=== PATIENT | female | born 1980 | race Caucasian/White ===

== ENCOUNTER → 2017-12-22 | Outpatient (CLI) | payer OTHER ==
[~2017-12-22] MED LIST: DCS100C PO; IBP800T PO; OXYC1TAB12 PO; PNV1TABL81 PO
--- NOTE | 2017-12-22 14:12 | Diagnostic Imaging Report ---
INDICATION: Routine screening. COMPARISON: No prior mammograms are available for comparison. This is a baseline study. TECHNIQUE: 2D and 3D bilateral screening mammography was performed with CAD. FINDINGS: Both breasts are heterogeneously dense, limiting the sensitivity of mammography. No mass or malignant appearing microcalcifications are seen. There are benign calcifications in the retroareolar right breast. The axillae are unremarkable. IMPRESSION: No mammographic features suspicious for malignancy are identified. ACR BI-RADS Category 2: Benign findings. Result letter will be mailed to the patient. Note: At least 10% of breast cancer is not imaged by mammography. Dictated by: Dictated on workstation # [id number]
== END ==
LOC: RAD 10:25
PROVIDERS: ATTEND Obstetrics & Gynecology
DX: Z12.31 Encounter for screening mammogram for malignant neoplasm of breast (principal)
CPT/HCPCS: 77067

== ENCOUNTER 2018-12-30 06:52 | Inpatient (IN) | payer OTHER ==
[~2018-12-30] VITALS: Ht 172.7 cm; Wt 74.1 kg
[2018-12-30] VITALS (9 sets, daily range): BP systolic 106–174; BP diastolic 56–80
--- NOTE | 2018-12-30 06:46 | NUR ---
BONY BECKHAM presented to unit via AMBULATORY from HOME, accompanied by S/O, with c/o POSS MEMBRANE RUPTURE. BONY BECKHAM weighed, gowned, voided, and to bed. EFHM and TOCO applied, VS taken. BONY BECKHAM oriented to bed controls, call light, TV, heat, and A/C controls.
--- NOTE | 2018-12-30 07:01 | NUR ---
dr king notified of patient situation, history, assessment. new orders received to admit patient.
[2018-12-30] MEDS ORDERED: D5 LR IV SOLUTION 1,000 ML IV SCH ×2 (07:32→08:13)
[2018-12-30 07:48] LABS: BASOPHILS % (AUTO) 0 % (0-10); EOSINOPHILS # (AUTO) 0.1 10^3/uL (0.0-0.3); EOSINOPHILS % (AUTO) 1 % (0-10); HEMATOCRIT 37 % (35-52); HEMOGLOBIN 12.9 G/DL (11.5-16.0); LYMPHOCYTES # (AUTO) 1.8 X 10^3 (1.0-4.0); LYMPHOCYTES % (AUTO) 26 % (12-44); MEAN CORPUSCULAR HEMOGLOBIN 33 PG (25-34); MEAN CORPUSCULAR HGB CONC 35 G/DL (32-36); MEAN CORPUSCULAR VOLUME 95 FL (80-99); MEAN PLATELET VOLUME 10.8 FL (7.4-10.4); MONOCYTES # (AUTO) 0.4 X 10^3 (0.0-1.0); MONOCYTES % (AUTO) 6 % (0-12); NEUTROPHILS # (AUTO) 4.6 X 10^3 (1.8-7.8); NEUTROPHILS % (AUTO) 67 % (42-75); PLATELET COUNT 203 10^3/uL (130-400); RED CELL DISTRIBUTION WIDTH 12.1 % (10.0-14.5); WHITE BLOOD COUNT 6.9 10^3/uL (4.3-11.0)
[2018-12-30] MEDS ORDERED: OXYTOCIN/NORMAL SALINE 500 ML IV SCH ×2 (08:13→12:24)
--- NOTE | 2018-12-30 11:40 | NUR ---
DR TANNER NOTIFIED OF PATIENT MOST RECENT CERVICAL EXAM .NO NEW ORDERS. CONTINUING TO OBSERVE EXPECTANTLY.
[2018-12-30] MEDS ORDERED: KETOROLAC 30 MG/ML VIAL ONE (12:28)
[2018-12-30] MEDS ORDERED: KETOROLAC 30 MG/ML VIAL IVP PRN (12:30)
[2018-12-30] MEDS ORDERED: oxyCODONE/APAP 5/325MG (PERCOCET 5) TABLET PO PRN (12:30)
[2018-12-30] MEDS ORDERED: BENZOCAINE/MENTHOL (DERMOPLAST) 56 ML CAN TP PRN (12:30)
[2018-12-30] MEDS ORDERED: ONDANSETRON 4 MG/2 ML (SDV) Z0FRAN IVP PRN (12:30)
[2018-12-30] MEDS ORDERED: MEASLES,MUMPS,RUBELLA 1 EA INJ SC ONE (12:30)
[2018-12-30] MEDS ORDERED: TETANUS,DIPTH,PERTUSS P/F (BOOSTRIX) 0.5 ML VIAL IM ONE (12:30)
--- NOTE | 2018-12-30 13:10 | NUR ---
ASSISTED UP TO BATHROOM. SPONTANEOUS VOID. PERICARE PERFORMED BY PATIENT DEMONSTRATED PROPER UNDERSTANDING . NEW PAD AND UNDERWEAR ON. FAMILY REMAINS AT BEDSIDE.
--- NOTE | 2018-12-30 13:17 | NUR ---
TRANSFERRED TO ROOM 311 VIA AMBULATION WITH FAMILY AT BEDSIDE. DENIES DIZZINESS OR LIGHTHEADEDNESS. STEADY GAIT, SMILING AND TALKING WITH FAMILY AND STAFF. REVIEWED TEMP CONTROL, CALL LIGHT, DIET ORDER, AND INFO PACKET REVIEWED. DENIES FURTHER NEED. WILL CONTINUE TO MONITOR.
[2018-12-30] MEDS: DOCUSATE SODIUM 100 MG (COLACE) CAP PO SCH (20:20)
--- NOTE | 2018-12-30 20:46 | OPERATIVE REPORT ---
DATE OF SERVICE: 12/30/2018 DELIVERY NOTE The patient delivered by term spontaneous vaginal delivery a viable female infant with Apgars of 8 and 9 at 1 and 5 minutes respectively, weight of 6 pounds 2 ounces, time of 12:02. The infant was delivered over an intact perineum, somewhat precipitously, but with all the personnel and equipment in place. The was bulb suctioned on delivery of the head and again on completion of the delivery. The umbilical cord was doubly clamped, father cut the cord, the baby was passed to mom's abdomen. The placenta delivered spontaneously [place], it was normal with 3-vessel cord. The cervix, vagina, rectum, and perineum were examined and found intact. Sponge and needle counts were correct. Estimated blood loss was around 150 mL. The patient tolerated the delivery well and remained in the LDR for recovery. The baby remained with the mom. Job ID: [id number] DocumentID: [id number] Dictated Date: 12/30/2018 12:28:10 Software Development Coordinator Date: 12/30/2018 20:45:10 Dictated By: KLARISSA TANNER MD
[2018-12-31] MEDS ORDERED: IBUPROFEN 800 MG (MOTRIN) TAB PO ONE (00:18)
[2018-12-31] MEDS: CATHETER FLUSH 10 ML SYR IV SCH ×3 (00:21→06:14)
[2018-12-31] MEDS: IBUPROFEN 800 MG (MOTRIN) TAB PO SCH ×2 (00:22→06:10)
[2018-12-31 04:00] VITALS: BP 96/61
[2018-12-31 08:35] VITALS: BP 108/67
--- NOTE | 2018-12-31 09:13 | Progress Note ---
Standard Progress Note Progress Notes/Assess & Plan Date Seen by a Provider: Dec 31, 2018 Time Seen by a Provider: 09:12 Progress/Assessment & Plan This patient is without complaint. She is ambulating, voiding, tolerating oral intake well has good pain control. Patient is requesting discharge home. Vital Signs 12/31/18 08:35 Temp 98.4 Pulse 68 Resp 18 B/P (MAP) 108/67 (81) Pulse Ox 99 O2 Delivery Room Air Vital signs are stable. Patient is afebrile. The abdomen is benign. Fundus is firm below the umbilicus and nontender. Extremities show no clubbing cyanosis. There is no Homans sign. Assessment and plan day number 1 doing well. Plan is for discharge home with follow-up in clinic Final Diagnosis Term spontaneous vaginal delivery at 37+ weeks gestation KLARISSA TANNER MD Dec 31, 2018 09:13
[2018-12-31] MEDS ORDERED: DOCU100C37 PO (09:15)
[2018-12-31] MEDS ORDERED: IBUP-1780 PO (09:15)
--- NOTE | 2018-12-31 09:15 | Discharge Instructions ---
Discharge Instructions Discharge Medications New, Converted or Re-Newed RX: Call to Patients Pharmacy Patient Instructions Patient Instructions: As directed Return to The Hospital For: As directed Activity & Diet Discharge Diet: No Restrictions Activity as Tolerated: No Orders-Post D/C & Referrals Follow Up Appt: Call to make follow up appt. for patient in 4 weeks. Activity Per routine post vaginal delivery instructions. Please call in RX to patient pharmacy. Diet as tolerated Patient may shower or tub bathe as desired. KLARISSA TANNER MD Dec 31, 2018 09:15
[2018-12-31] MEDS: DOCUSATE SODIUM 100 MG (COLACE) CAP PO SCH (09:20)
--- NOTE | 2018-12-31 15:05 | NUR ---
BONY BECKHAM demonstrates understanding of discharge instructions and accurately returns instructions upon questioning. Copy of Post-Discharge Instructions and Medication Discharge Instructions given to patient. BONY BECKHAM is able to manage continuing needs after discharge. Patients belongings returned to patient. Skin dry and intact; no breakdown noted. Patient discharged from [facility]- on 12-31-18 at 1505. BONY BECKHAM left floor via ambulation, accompanied by staff and family.
[2018-12-31] MEDS ORDERED: IBUPROFEN 800 MG (MOTRIN) TAB PO SCH (18:00)
--- NOTE | 2019-01-06 16:58 | HISTORY AND PHYSICAL ---
DATE OF SERVICE: ADMIT HISTORY AND PHYSICAL HISTORY OF PRSENT ILLNESS: The patient was admitted on 12/30/2018 in active labor. She had presented with spontaneous rupture of membranes. She was managed expectantly. Her GBS culture had been negative. ALLERGIES: None. MEDICATIONS: vitamins. Medical, social and surgical histories are per the antepartum record. PHYSICAL EXAMINATION: HEENT: Normal. NECK: Supple. No lymphadenopathy, no thyromegaly. ABDOMEN: Gravid, soft, nontender, nondistended. EXTREMITIES: Show no clubbing or cyanosis. There is no Homans' sign. monitor showed regular contractions. There was a normal heart rate pattern. Pelvic exam shows a cervix that was dilated 3 cm and 50% effaced, vertex presentation. ASSESSMENT AND PLAN: Term and labor with spontaneous rupture of membranes. The patient was admitted in labor with anticipation for a vaginal delivery. Job ID: [id number] DocumentID: [id number] Dictated Date: 01/06/2019 10:53:49 Program Management Intern Date: 01/06/2019 11:04:28 Dictated By: KLARISSA TANNER MD MTDD
== END 2018-12-31 15:05 | disposition home or self-care (01) | DRG 807 ==
LOC: LDRP 06:52 → WSo 06:52 → LDRP 07:31
PROVIDERS: ADMIT Obstetrics & Gynecology; ATTEND Obstetrics & Gynecology
PROC: 10E0XZZ Delivery of Products of Conception, External Approach (ICD-10-PCS; principal; 2018-12-30)
DX: O62.3 Precipitate labor (principal); Z37.0 Single live birth; Z3A.37 37 weeks gestation of pregnancy
CPT/HCPCS: 36415; 85025; 86850; 86900; 86901; 99212

== ENCOUNTER → 2021-05-28 | Outpatient (CLI) | payer BC, OTHER ==
[~2021-05-28] MED LIST changes: +DOCU100C37 PO; +IBUP-1780 PO
--- NOTE | 2021-05-28 08:49 | Diagnostic Imaging Report ---
EXAMINATION: US Right Lower Extremity Venous Duplex. TECHNIQUE: Multiple real-time grayscale images were obtained over the right lower extremity in various projections. Additional spectral analysis and color Doppler duplex images were also obtained. HISTORY: Swelling COMPARISON: None available. FINDINGS: Right: The common femoral, superficial femoral, popliteal, peroneal, posterior tibial, and greater saphenous veins demonstrate normal flow, augmentation, compressibility. IMPRESSION: 1. No DVT of the right lower extremity. Dictated by: Dictated on workstation # [id number]
== END ==
LOC: RAD 07:16
PROVIDERS: ATTEND Nurse Practitioner Community Health
DX: M79.604 Pain in right leg (principal); M79.89 Other specified soft tissue disorders

== ENCOUNTER 2021-05-29 09:59 | Emergency (ER) | payer BC ==
[~2021-05-29] VITALS: Ht 172 cm; Wt 65.0 kg
[2021-05-29 10:00] VITALS: BP 120/91
--- NOTE | 2021-05-29 10:30 | ED Lower Extremity ---
General Chief Complaint: OB > 20 WEEKS Stated Complaint: R LEG PAIN,SWELLING, POSSIBLE BLOOD CLOT,20 WKS [place] Nursing Triage Note: ARRIVED VIA AMB. STATES SHE HAS BRUISING BEHIND RIGHT KNEE WITH NEW VARICOSE VEINS. BLOOD WAS DRAWN WEDNESDAY AND ULTRASOUND DONE YESTERDAY. WAS CALLED TO DAY AND TOLD TO COME TO THE ER BECAUSE HER D-DIMER WAS ELEVATED. HOMANS SIGN NEG. Source: patient Exam Limitations: no limitations (MAYELA AMAYA APRN) History of Present Illness Date Seen by Provider: May 29, 2021 Time Seen by Provider: 10:30 Initial Comments To ER with c/o right posterior knee tenderness and varicose veins. She is 20 weeks . She had labs at [facility] walk in clinic earlier this week and had labs done and US ordered. US was done yesterday negative for clot. Labs subsequently came back showing elevated d-dimer and she was referred to ER. Onset: last week Severity: moderate Pain/Injury Location: right leg Method of Injury: unknown (MAYELA AMAYA APRN) Allergies and Home Medications Allergies Coded Allergies: No Known Drug Allergies (Unverified , 01/06/15) Patient Home Medication List Home Medication List Reviewed: Yes (MAYELA AMAYA APRN) Docusate Sodium (Colace) 100 Mg Cap, 100 MG PO BID Prescribed by: KLARISSA CASTAÑEDA on 01/07/15717 Docusate Sodium (Docusate Sodium) 100 Mg Capsule, 100 MG PO BID Prescribed by: KLARISSA CASTAÑEDA on 12/31/18 0915 Ibuprofen (Motrin Tablet) 800 Mg Tab, 800 MG PO Q6H Prescribed by: KLARISSA CASTAÑEDA on 01/07/15 07 Ibuprofen (Ibuprofen) 800 Mg Tablet, 800 MG PO Q6HR Prescribed by: KLARISSA CASTAÑEDA on 12/31/18 0915 Oxycodone Hcl/Acetaminophen (Percocet 10/325 (Non-Formulary)) 1 Tab Tablet, 1-2 TAB PO Q4H PRN for PAIN Prescribed by: KLARISSA CASTAÑEDA on 01/07/15 0718 Pnv No.122/Iron/Folic Acid ( Multi Tablet) 1 Each Tablet, 1 EACH PO DAILY Prescribed by: ALEXANDRU CRANE on 01/06/15 0426 Review of Systems Constitutional: see HPI EENTM: see HPI Respiratory: no symptoms reported Cardiovascular: no symptoms reported Genitourinary: no symptoms reported Musculoskeletal: no symptoms reported Skin: see HPI Psychiatric/Neurological: No Symptoms Reported (MAYELA AMAYA APRN) Past Kcngblv-Atfovy-Bjgoes Hx Patient Social History Tobacco Use?: No Substance use?: No (MAYELA AMAYA APRN) Immunizations Up To Date Tetanus Booster (TDap): More than 5yrs PED Vaccines UTD: Yes Second COVID19 Vaccination Venkat: 09/01 COVID19 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 5.0oz. 74.340285mg; 21.00 BMI Method: General Appearance: WD/WN, no apparent distress HEENT: PERRL/EOMI, normal ENT inspection Neck: non-tender, full range of motion Respiratory: no respiratory distress, no accessory muscle use Hips: bilateral hip non-tender, bilateral hip normal inspection, bilateral hip normal range of motion Legs: right leg other (superficial venous polk to right popliteal fossa with some varicose veins proximal to this. No erythema. ) Knees: bilateral knee non-tender, bilateral knee normal inspection, bilateral knee normal range of motion Ankles: bilateral ankle non-tender, bilateral ankle normal inspection, bilateral ankle normal range of motion Feet: bilateral foot non-tender, bilateral foot normal inspection, bilateral foot normal range of motion Neurologic/Psychiatric: alert, normal mood/affect, oriented x 3 Skin: normal color, warm/dry (MAYELA AMAYA APRN) Progress/Results/Core Measures Results/Orders Vital Signs/I&O 05/29/21 10:00 Temp 36.3 Pulse 77 Resp 16 B/P (MAP) 120/91 (101) Pulse Ox 100 O2 Delivery Room Air (YUNG ANAYA MD) Blood Pressure Mean: 101 Departure Impression Primary Impression: Varicose vein of leg Disposition: HOME, SELF-CARE Condition: Stable Departure-Patient Inst. Decision time for Depature: 10:30 (MAYELA AMAYA APRN) Referrals: AD ERICKSON DO (PCP/Family) Primary Care Physician Patient Instructions: Varicose Veins (DC) Add. Discharge Instructions: 1. wear compression socks (you can find them on [employer] easily and for a lot cheaper than at [employer]) durin the day and off at night. 2. The blood test used to evaluate for possible clot in the leg is called a D- dimer. If this is negative then there is certainly no clot. However if it is positive then there may possibly be a clot. However many other things can contribute to a positive D-dimer test including chronic illness, bruising, menstruation, simply being , chronic diseases. Since we know that your ultrasound is negative for clot then your D-dimer is simply elevated because of your . This is no cause for concern. All discharge instructions reviewed with patient and/or family. Voiced understanding. ATTENDING PHYSICIAN NOTE: I was physically present as attending physician in the emergency department during the care of this patient, but I was not directly involved in the decision making or delivery of care for this patient. (YUNG ANAYA MD) MAYELA AMAYA APRN May 29, 2021 10:30 YUNG ANAYA MD May 29, 2021 19:26
== END 2021-05-29 10:51 | disposition home or self-care (01) ==
LOC: EDUNIT# 09:59 → ER 10:01
DX: I83.91 Asymptomatic varicose veins of right lower extremity (principal)
CPT/HCPCS: 99281